=== PATIENT | male | born 1945 | race Caucasian/White ===

== ENCOUNTER → 2019-01-27 | Outpatient (CLI) | payer MEDICARE, SELFPAY | PROVIDERS: PCP Physician Assistant; Visit Provider Physician Assistant | DX: E78.5 Hyperlipidemia, unspecified (principal); R97.20 Elevated prostate specific antigen [PSA] | CPT/HCPCS: 36415; 80061; 84153; G0103 ==

== ENCOUNTER 2020-01-19 09:57 | Outpatient (CLI) | payer MEDICARE, SELFPAY ==
[2020-01-19 10:39] LABS: Hematocrit 39.7 % (42.0-52.0); Hemoglobin 14.1 g/dL (14.0-18.0); Immature Platelet Fraction Pct 3.9 % (0.9-11.2); Mean Corpuscular HGB Conc 35.5 g/dl (32-36); Mean Corpuscular Hemoglobin 30.3 pg (26-34); Mean Corpuscular Volume 85.4 fl (80-100); Mean Platelet Volume 10.3 fl (7.4-10.4); Platelet Count Result 118 k/mm3 (150-375); Red Blood Count 4.65 M/mm3 (4.6-6.20); Red Cell Distribution Width 12.7 % (11.5-14.5); White Blood Count 5.6 K/mm3 (4.5-10.0)
[2020-01-19 10:50] LABS: Alanine Aminotransferase 20 U/L (4-50); Alkaline Phosphatase 53 U/L (38-126); Anion Gap 6 mmol/L (8-16); Aspartate Amino Transferase 31 U/L (17-59); Bilirubin,Total 0.6 mg/dL (0.2-1.3); Blood Urea Nitrogen 22 mg/dL (9-20); Calcium 8.7 mg/dL (8.4-10.2); Carbon Dioxide 27 mmol/L (22-30); Chloride 105 mmol/L (98-107); Cholesterol 181 mg/dL (0-200); Estimated Glomerular Filt Rate > 60; Glucose 90 mg/dL (75-110); HDL Direct 60 mg/dL; Potassium 4.1 mmol/L (3.4-5.0); Sodium 138 mmol/L (137-145); Triglycerides 52 mg/dL (<150)
[2020-01-19 11:01] LABS: LDL Cholesterol Direct 102 mg/dL
[2020-01-19 11:21] LABS: Prostate Specific Antigen 3.8 ng/mL (< OR = 4.0)
== END 2020-01-19 09:58 | disposition home or self-care (01) ==
PROVIDERS: PCP Physician Assistant; Visit Provider Physician Assistant
DX: E78.5 Hyperlipidemia, unspecified (principal); R53.83 Other fatigue; Z12.5 Encounter for screening for malignant neoplasm of prostate
CPT/HCPCS: 36415; 80053; 80061; 84153; 84443; 85027; 85055; G0103

== ENCOUNTER 2020-07-27 08:17 | Outpatient (CLI) | payer MEDICARE, SELFPAY | END 2020-07-27 08:18 | disposition home or self-care (01) | LOC: ANHCOVIDVC 08:17 | PROVIDERS: PCP Physician Assistant | DX: Z23 Encounter for immunization (principal) | CPT/HCPCS: 0001A; 91300 ==

== ENCOUNTER 2020-08-17 08:17 | Outpatient (CLI) | payer MEDICARE, SELFPAY | END 2020-08-17 08:18 | LOC: ANHCOVIDVC 08:17 | PROVIDERS: PCP Physician Assistant | DX: Z23 Encounter for immunization (principal) | CPT/HCPCS: 0002A; 91300 ==

== ENCOUNTER 2020-12-31 19:29 | Emergency (ER) | payer MEDICARE, SELFPAY ==
--- NOTE | ~2020-12-31 | CT_ITS ---
EXAMINATION: CT abdomen pelvis wo con DATE: 12/31/2020 21:26 INDICATION: Sudden onset left lower quadrant abdominal pain. TECHNIQUE: Computed tomography (CT) of the abdomen and pelvis was performed without intravenous contr ast. Automated exposure control and iterative reconstruction technique were employed. The dose-length product was 606.26 mGy-cm. COMPARISON: None FINDINGS: Calcified left lower lobe nodule consistent with old granulomatous disease. Heart size is normal. No pericardial or pleural effusion. Small sliding-type hiatal hernia. Focal hepatic steatosis at the lig amentum teres. Approximately 1.5-2 cm indeterminate hypodense lesion in the right hepatic lobe. Gallb ladder, spleen, pancreas and bilateral adrenal glands are normal. 4 mm nonobstructing stone at a lowe r pole calyx of the right kidney. 6 x 4 x 2 mm obstructing stone at the distalmost left ureter within 5 mm of the ureterovesicular junction resulting in moderate left hydroureteronephrosis. No other lef t-sided urolithiasis. There is stranding about the left kidney and renal sinus. Bladder is partially decompressed. Surgical clips versus brachytherapy seeds at the enlarged prostate. Small fat-containin g left inguinal hernia and large right inguinal hernia containing short segment of nonobstructed smal l bowel. Normal appendix. Moderate sigmoid and distal descending colon diverticulosis without adjacen t inflammatory change to suggest diverticulitis. No free intraperitoneal gas or fluid. No pathologica lly enlarged abdominal or pelvic lymphadenopathy. Moderate to severe thoracolumbar spondylosis. Mild to moderate bilateral hip osteoarthritis. IMPRESSION: 1. Lateral nephrolithiasis with obstructing 6 x 4 x 2 mm stone at the distalmost left ureter with mod erate left hydronephrosis. Correlate with urinalysis to exclude associated urinary tract infection. 2. Small sliding-type hiatal hernia. 3. Indeterminate and ill-defined 1.5-2 cm hypodense lesion in the right hepatic lobe statistically mo st likely to represent a hemangioma but would recommend follow-up and postcontrast MRI or CT for furt her evaluation. 4. Small fat-containing left inguinal hernia and large right inguinal hernia containing short segment of nonobstructed small bowel. 5. Surgical clips versus brachytherapy seeds at the enlarged prostate. Reviewed, dictated and finalized at location A. IMPRESSION: 1. Lateral nephrolithiasis with obstructing 6 x 4 x 2 mm stone at the distalmos t left ureter with moderate left hydronephrosis. Correlate with urinalysis to e xclude associated urinary tract infection. 2. Small sliding-type hiatal hernia. 3. Indeterminate and ill-defined 1.5-2 cm hypodense lesion in the right hepatic lobe statistically most likely to represent a hemangioma but would recommend f ollow-up and postcontrast MRI or CT for further evaluation. 4. Small fat-containing left inguinal hernia and large right inguinal hernia co ntaining short segment of nonobstructed small bowel. 5. Surgical clips versus brachytherapy seeds at the enlarged prostate.
--- NOTE | ~2020-12-31 | XR_ITS ---
EXAMINATION: XR abdomen/kub 1V INDICATION: Left ureteral stone TECHNIQUE: Supine view of the abdomen is obtained. COMPARISON: CT of the same day FINDINGS: A 6 mm stone projects in the left pelvis at the expected location of the distal left ureter . There is a 4 mm stone of the right kidney. The bowel gas pattern is normal. Brachytherapy seeds are noted. There is mild to moderate hip osteoarthritis. IMPRESSION: 1. 6 mm stone at the expected location distal left ureter. 2. Right nephrolithiasis. Reviewed, dictated and finalized at location A.
[2020-12-31 19:38] VITALS: BP 125/65; PULSE 57; RESP 20; TEMP 36.1; O2SAT 100
[2020-12-31 20:03] LABS: Basophils Percent Auto 0.4 % (0.2-1.2); Eosinophils Absolute Auto 0.2 K/mm3 (0-0.3); Hematocrit 41.7 % (42.0-52.0); Immature Granulocyte Absolute 0.02 K/mm3 (0.00-0.031); Immature Granulocyte Percent A 0.2 % (0-0.5); Lymphocytes Absolute Auto 1.58 K/mm3 (0.9-3.2); Lymphocytes Percent Auto 18.9 % (18.3-44.2); Mean Corpuscular HGB Conc 33.6 g/dl (32-36); Mean Corpuscular Hemoglobin 29.1 pg (26-34); Mean Corpuscular Volume 86.7 fl (80-100); Mean Platelet Volume 9.8 fl (7.4-10.4); Monocytes Absolute Auto 0.8 K/mm3 (0.1-0.6); Neutrophils Absolute Auto 5.8 K/mm3 (1.3-6.7); Neutrophils Percent Auto 69.5 % (45.5-73.1); Platelet Count Result 164 k/mm3 (150-375); Red Blood Count 4.81 M/mm3 (4.6-6.20); White Blood Count 8.4 K/mm3 (4.5-10.0)
[2020-12-31 20:12] LABS: Alanine Aminotransferase 21 U/L (4-50); Alkaline Phosphatase 60 U/L (38-126); Anion Gap 10 mmol/L (8-16); Aspartate Amino Transferase 28 U/L (17-59); Bilirubin,Total 0.4 mg/dL (0.2-1.3); Blood Urea Nitrogen 23 mg/dL (9-20); Calcium 9.3 mg/dL (8.4-10.2); Carbon Dioxide 22 mmol/L (22-30); Chloride 105 mmol/L (98-107); Estimated CRCL calculation 46 ml/min; Estimated Glomerular Filt Rate 54; Glucose 150 mg/dL (65-110); Lipase 142 U/L (23-300); Potassium 3.6 mmol/L (3.4-5.0); Sodium 137 mmol/L (137-145)
[2020-12-31 21:20] LABS: Add Urine Microscopic? YES; Appearance Urine Clear (Clear); Bilirubin Urine Negative (Negative); Blood Urine 3+ (Negative); Color Urine Yellow (Yellow); Glucose Urine UA Negative (Negative); Ketones Urine Negative (Negative); Leukocyte Esterase Ur Negative LEU/UL (Negative); Nitrate Urine Negative (Negative); Protein Urine 2+ mg/dL (Negative); RBC Urine 0-2 /hpf (0-2); Urobilinogen Urine Negative mg/dL (<2.0); WBC Urine 0-3 /hpf
[2020-12-31 21:21] LABS: Specific Grav Ur 1.031 (1.001-1.035)
[2020-12-31 21:44] VITALS: BP 137/76; PULSE 73; RESP 18; O2SAT 98
[2020-12-31] MEDS: SODIUM CHLORIDE 0.9% IV 1,000 ML 999 ML IV CONT (21:44)
[2020-12-31 22:44] VITALS: BP 144/67; PULSE 89; RESP 18; O2SAT 97
--- NOTE | 2020-12-31 22:54 | ED.ABDPAIN ---
HPI - Abdominal Pain General Chief Complaint: Abdominal Pain Stated Complaint: Left groin pain Time Seen by Provider: 12/31/20 21:05 History of Present Illness HPI narrative: Patient presents with left-sided abdominal pain. Patient ports he is cooking dinner and sudden onset of sharp pain in his left groin. Reports that caused him to be nauseous and have diaphoresis. He never experienced pain like this before. There are no clear aggravating or alleviating factors. He came to the ER for evaluation. On arrival to ER reports his pain had greatly improved though still present but nearly resolved. Related Data Home Medications Medication Instructions Recorded Confirmed finasteride 5 mg tablet 5 mg PO DAILY 01/21/20 01/27/20 rosuvastatin 10 mg tablet 10 mg PO DAILY 01/21/20 01/27/20 Allergies Allergy/AdvReac Type Severity Reaction Status Date / Time No Known Allergies Allergy Verified 12/31/20 19:43 Review of Systems Review of Systems: CONSTITUTIONAL: Denies fever, chills, or sweats. EYES: Denies visual changes, redness, or discharge. ENT: Denies rhinorrhea, congestion, sore throat, or otalgia. CARDIOVASCULAR: Denies chest pain, palpitations, or edema. RESPIRATORY: Denies cough or dyspnea. GASTROINTESTINAL: Denies vomiting, or diarrhea. GENITOURINARY: Denies dysuria or hematuria. SKIN: Denies rash or itching. MUSCULOSKELETAL: Denies back pain, joint pain, or myalgia. NEUROLOGIC: Denies headache, numbness, dizziness, or weakness. PSYCHIATRIC: Denies anxiety or depression. [facility] Family History Family History Mother Family history of malignant neoplasm Father Family history of malignant neoplasm Social History Social History Years smoked: 2 Smoking status: Former smoker Second hand tobacco smoke exposure: No Smoking end date: 05/20/69 Alcohol intake: current Exam Narrative: GENERAL: Well-appearing, well-nourished, and in no acute distress. HEAD: Normocephalic, atraumatic. EYES: PERRLA and EOMI. ENT: Nares clear, no rhinorrhea or epistaxis. Mucous membranes moist. NECK: Supple. No masses. No JVD ABDOMEN: Soft, nontender, nondistended, normal active bowel sounds. BACK: No tenderness palpation no CVA tenderness EXTREMITIES: Normal range of motion. No edema. SKIN: Warm, dry, no rash. NEURO: No focal deficits. Alert and oriented x3. PSYCH: Normal mood and affect. Course Reevaluation(s) Reevaluation #1: Patient continues feels much improved from his initial symptom onset. Work-up and plan reviewed with patient. Patient feels he can manage his pain at home with follow-up with his urologist next week Date: 12/31/20 Time: 22:45 Vital Signs Vital signs: Vital Signs Temperature 36.1 C L 12/31/20 19:38 Pulse Rate 57 L 12/31/20 19:38 Respiratory Rate 20 12/31/20 19:38 Blood Pressure 125/65 12/31/20 19:38 Pulse Oximetry 100 12/31/20 19:38 Temperature 36.1 C L 12/31/20 19:38 Pulse Rate 89 12/31/20 22:44 Respiratory Rate 18 12/31/20 22:44 Blood Pressure 144/67 H 12/31/20 22:44 Pulse Oximetry 97 12/31/20 22:44 MDM - Abdominal Pain MDM Narrative Medical decision making narrative: H&P as above, vss, pt looks clinically well, I am unable to reproduce pain during the exam, labs unremarkable, img with a 6 mm ureteral stone, additional labs/img considered, symptomatic relief available as needed, on reevaluation pt continues to looks clinically well. Suspect ureteral stone, dns CHRISTIANO, infected stone, severe sepsis. Case discussed with Dr. Johnson who will follow up with patient next week. Plan to tx/monitor as op w/ urology f/u findings/plan discussed with pt, pt agree/comfortable with plan, return precautions given Lab Data Result diagrams: 12/31/20 19:55 12/31/20 19:55 Labs: Lab Results 12/31/20 12/31/20 12/31/20 Range/Units 19:5
== END 2020-12-31 23:28 | disposition home or self-care (01) ==
PROVIDERS: Emergency Medicine; Emergency Provider Emergency Medicine; PCP Physician Assistant
DX: N13.2 Hydronephrosis with renal and ureteral calculous obstruction (principal); Z87.891 Personal history of nicotine dependence; K44.9 Diaphragmatic hernia without obstruction or gangrene; K76.9 Liver disease, unspecified; K40.20 Bilateral inguinal hernia, without obstruction or gangrene, not specified as recurrent
CPT/HCPCS: 36415; 74018; 74176; 80053; 81001; 83690; 85025; 96360; 99284; J7030

== ENCOUNTER 2021-01-04 11:32 | Outpatient (CLI) | payer MEDICARE, SELFPAY ==
--- NOTE | ~2021-01-04 | XR_ITS ---
XR abdomen/kub 1V DATE: 01/04/2021 11:50 INDICATION: Left ureteral stone TECHNIQUE: AP projection, 2 views COMPARISON: 12/31/[address] abdomen pelvis FINDINGS: The calcified calculus overlying the distal left ureter on 12/31/2020 KUB is not definitivel y localized on the current radiograph, and may have been passed. No bowel obstruction is evident. The psoas shadows are intact. No visceromegaly is detected. Brachytherapy seeds and calcification overlie the prostate. Degenerative changes of the thoracic and lumbar spine. The lung bases are clear. Heart size appears normal. IMPRESSION: Previously reported 6 mm distal left ureteral calcified calculus is not localized at the distal left ureter on the current examination Reviewed, dictated and finalized at Location [facility]. Reviewed, dictated and finalized at location A.
== END 2021-01-04 11:33 | disposition home or self-care (01) ==
LOC: ANHIMG 11:35
PROVIDERS: PCP Physician Assistant; Visit Provider Urology
DX: N20.1 Calculus of ureter (principal)
CPT/HCPCS: 74018

== ENCOUNTER 2021-02-01 10:40 | Emergency (ER) | payer MEDICARE, SELFPAY ==
[2021-02-01 10:46] VITALS: BP 149/62; PULSE 66; RESP 14; TEMP 36.5; O2SAT 100
[2021-02-01 11:18] LABS: Basophils Percent Auto 0.4 % (0.2-1.2); Eosinophils Absolute Auto 0.1 K/mm3 (0-0.3); Eosinophils Percent Auto 1.9 % (0-4.4); Hematocrit 41.6 % (42.0-52.0); Hemoglobin 14.1 g/dL (14.0-18.0); Immature Granulocyte Absolute 0.02 K/mm3 (0.00-0.031); Immature Granulocyte Percent A 0.4 % (0-0.5); Lymphocytes Percent Auto 16.8 % (18.3-44.2); Mean Corpuscular HGB Conc 33.9 g/dl (32-36); Mean Corpuscular Hemoglobin 29.7 pg (26-34); Mean Corpuscular Volume 87.8 fl (80-100); Mean Platelet Volume 9.9 fl (7.4-10.4); Monocytes Absolute Auto 0.5 K/mm3 (0.1-0.6); Monocytes Percent Auto 9.5 % (2.6-8.5); Neutrophils Absolute Auto 3.8 K/mm3 (1.3-6.7); Platelet Count Result 144 k/mm3 (150-375); Red Blood Count 4.74 M/mm3 (4.6-6.20); Red Cell Distribution Width 12.7 % (11.5-14.5); White Blood Count 5.4 K/mm3 (4.5-10.0)
--- NOTE | 2021-02-01 11:27 | ED.GENADULT ---
HPI - General Adult General Chief complaint: Psychiatric Symptoms Stated complaint: SI Time Seen by Provider: 02/01/21 11:20 History of Present Illness HPI narrative: Patient 75-year-old gentleman who presents the emergency department with chief complaint of depression and needs mental health evaluation. The patient states that since early December he has been very depressed as he suddenly found out that his left him and has found that there is been some significant financial challenges and has been reporting that he has been feeling very depressed. The patient states that he feels somewhat hopeless states that he has had some thoughts of harming himself but does not have an actual plan. The patient states that has not tried to harm himself before in the past but feels very hopeless at this time. The patient states that he does not want away start time and feels that this today is more of a misunderstanding Related Data Home Medications Medication Instructions Recorded Confirmed No Home Medications 02/01/21 02/01/21 Allergies Allergy/AdvReac Type Severity Reaction Status Date / Time No Known Allergies Allergy Verified 02/01/21 12:50 Review of Systems Review of Systems: A 10 system review of systems was completed on the patient and is negative except for what is stated in the HPI. Nursing and ancillary documentation was reviewed. [facility] Family History Family History Mother Family history of malignant neoplasm Father Family history of malignant neoplasm Social History Social History Years smoked: 2 Smoking status: Former smoker Second hand tobacco smoke exposure: No Smoking end date: 05/20/69 Alcohol intake: current Substance use type: does not use Course Course Emergency Course: Patient is medically cleared for psychiatric evaluation Vital Signs Vital signs: Vital Signs Temperature 36.5 C 02/01/21 10:46 Pulse Rate 66 02/01/21 10:46 Respiratory Rate 14 02/01/21 10:46 Blood Pressure 149/62 H 02/01/21 10:46 Pulse Oximetry 100 02/01/21 10:46 Temperature 36.8 C 02/01/21 12:53 Pulse Rate 66 02/01/21 12:53 Respiratory Rate 16 02/01/21 12:53 Blood Pressure 153/64 H 02/01/21 12:53 Pulse Oximetry 98 02/01/21 12:53 Medical Decision Making Vital Signs Vital Signs: Vital Signs Temperature 36.5 C 02/01/21 10:46 Pulse Rate 66 02/01/21 10:46 Respiratory Rate 14 02/01/21 10:46 Blood Pressure 149/62 H 02/01/21 10:46 Pulse Oximetry 100 02/01/21 10:46 Temperature 36.8 C 02/01/21 12:53 Pulse Rate 66 02/01/21 12:53 Respiratory Rate 16 02/01/21 12:53 Blood Pressure 153/64 H 02/01/21 12:53 Pulse Oximetry 98 02/01/21 12:53 Lab Data Result diagrams: 02/01/21 10:58 02/01/21 10:58 Labs: Lab Results 02/01/21 02/01/21 02/01/21 Range/Units 10:58 10:58 10:58 WBC 5.4 (4.5-10.0) K/mm3 RBC 4.74 (4.6-6.20) M/mm3 Hgb 14.1 (14.0-18.0) g/dL Hct 41.6 L (42.0-52.0) % MCV 87.8 (80-100) fl MCH 29.7 (26-34) pg MCHC 33.9 (32-36) g/dl RDW 12.7 (11.5-14.5) % Plt Count 144 L (150-375) k/mm3 MPV 9.9 (7.4-10.4) fl Immature Gran % (Auto) 0.4 (0-0.5) % Neut % (Auto) 71.0 (45.5-73.1) % Lymph % (Auto) 16.8 L (18.3-44.2) % Pender % (Auto) 9.5 H (2.6-8.5) % Eos % (Auto) 1.9 (0-4.4) % Baso % (Auto) 0.4 (0.2-1.2) % Lymph # (Auto) 0.90 (0.9-3.2) K/mm3 Pender # (Auto) 0.5 (0.1-0.6) K/mm3 Eos # (Auto) 0.1 (0-0.3) K/mm3 Baso # (Auto) 0.0 (0.0-0.1) K/mm3 Abs Immat Gran (auto) 0.02 (0.00-0.031) K/mm3 Absolute Neuts (auto) 3.8 (1.3-6.7) K/mm3 Absolute Nucleated RBC 0.0 (0.0-0.012) K/mm3 Nucleated RBC % 0.0 (0.0-0.2) % Sodium 140 (137-145) mmol/L Potassium 3.9 (3.4-5.0) mmol/L C
[2021-02-01 11:28] LABS: Add Urine Microscopic? YES; Appearance Urine Clear (Clear); Bilirubin Urine Negative (Negative); Blood Urine 1+ (Negative); Color Urine Yellow (Yellow); Glucose Urine UA Negative (Negative); Ketones Urine Trace mg/dL (Negative); Leukocyte Esterase Ur Negative LEU/UL (Negative); Mucus Urine Heavy /lpf; Nitrate Urine Negative (Negative); Protein Urine 1+ mg/dL (Negative); Specific Grav Ur 1.029 (1.001-1.035); Squamous Epithelial Cell Urine Rare /hpf (Few); Urobilinogen Urine Negative mg/dL (<2.0); WBC Urine 0-3 /hpf
--- NOTE | 2021-02-01 11:39 | ECG_ITS ---
Measurements Intervals [place] Rate: 60 P: 85 [place]: 212 QRS: -34 QRSD: 110 T: 50 QT: 403 QTc: 405 Interpretive Statements SINUS RHYTHM WITH FIRST DEGREE AV BLOCK LEFT AXIS DEVIATION INCOMPLETE RIGHT BUNDLE BRANCH BLOCK ABNORMAL ECG Electronically Signed On 02-01-2021 13:31:47 CDT by Jayesh Casas D.O.
[2021-02-01 11:43] LABS: Alanine Aminotransferase 17 U/L (4-50); Albumin Level 4.1 g/dL (3.5-5.1); Alkaline Phosphatase 58 U/L (38-126); Anion Gap 9 mmol/L (8-16); Aspartate Amino Transferase 28 U/L (17-59); Bilirubin,Total 0.6 mg/dL (0.2-1.3); Blood Urea Nitrogen 18 mg/dL (9-20); Carbon Dioxide 25 mmol/L (22-30); Chloride 106 mmol/L (98-107); Estimated CRCL calculation 59 ml/min; Estimated Glomerular Filt Rate > 60; Glucose 98 mg/dL (65-110); Potassium 3.9 mmol/L (3.4-5.0); Sodium 140 mmol/L (137-145)
[2021-02-01 11:43] LABS: Amphetamine Screen Urine Negative (Negative); Barbiturate Screen Urine Negative (Negative); Benzodiazepines Screen Urine Negative (Negative); Cannabinoid Screen Urine Negative (Negative); Cocaine Screen Urine Negative (Negative); Methadone Screen Urine Negative (Negative); Opiate Screen Urine Negative (Negative); Phencyclidine Screen Urine Negative (Negative)
[2021-02-01 12:06] LABS: Acetaminophen < 10 ug/mL (10-30); Salicylate < 1.0 mg/dL (2-20)
[2021-02-01 12:08] LABS: Ethanol < 10 mg/dL (<10)
[2021-02-01 12:53] VITALS: BP 153/64; PULSE 66; RESP 16; TEMP 36.8; O2SAT 98
--- NOTE | 2021-02-01 12:55 | PC.NURSE ---
Patient stating he has nothing to look forward to d/t his filing for divorce. Patient states he has been upset since his left.
--- NOTE | 2021-02-01 15:19 | PC.NURSE ---
Addendum entered by Agnieszka Hammond RN 02/01/21 15:19: pt has no suicide risk indicated per suicide risk assessment Original Note: sitter pulled. pt taken off suicide precautions d/t signing safety contract
== END 2021-02-01 17:29 | disposition home or self-care (01) ==
PROVIDERS: Emergency Medicine; Emergency Provider Emergency Medicine; PCP Physician Assistant
DX: F32.9 Major depressive disorder, single episode, unspecified (principal); Z87.891 Personal history of nicotine dependence; I44.0 Atrioventricular block, first degree; I45.10 Unspecified right bundle-branch block
CPT/HCPCS: 36415; 80053; 80307; 81001; 84443; 85025; 93005; 99283

== ENCOUNTER 2021-11-08 07:37 | Outpatient (CLI) | payer MEDICARE, SELFPAY ==
[2021-11-08 07:50] LABS: Basophils Percent Auto 0.5 % (0.2-1.2); Eosinophils Absolute Auto 0.2 K/mm3 (0-0.3); Eosinophils Percent Auto 3.7 % (0-4.4); Hematocrit 40.2 % (42.0-52.0); Hemoglobin 13.7 g/dL (14.0-18.0); Immature Granulocyte Absolute 0.01 K/mm3 (0.00-0.031); Immature Granulocyte Percent A 0.2 % (0-0.5); Immature Platelet Fraction Pct 2.8 % (0.9-11.2); Lymphocytes Absolute Auto 1.22 K/mm3 (0.9-3.2); Lymphocytes Percent Auto 20.5 % (18.3-44.2); Mean Corpuscular HGB Conc 34.1 g/dl (32-36); Mean Corpuscular Hemoglobin 29.7 pg (26-34); Mean Corpuscular Volume 87.2 fl (80-100); Mean Platelet Volume 9.6 fl (7.4-10.4); Monocytes Absolute Auto 0.5 K/mm3 (0.1-0.6); Monocytes Percent Auto 8.7 % (2.6-8.5); Neutrophils Percent Auto 66.4 % (45.5-73.1); Platelet Count Result 154 k/mm3 (150-375); Red Blood Count 4.61 M/mm3 (4.6-6.20); Red Cell Distribution Width 13.2 % (11.5-14.5)
[2021-11-08 09:02] LABS: Alanine Aminotransferase 19 U/L (6-50); Alkaline Phosphatase 60 U/L (38-126); Anion Gap 6 mmol/L (8-16); Aspartate Amino Transferase 28 U/L (17-59); Bilirubin,Total 0.6 mg/dL (0.2-1.3); Blood Urea Nitrogen 19 mg/dL (9-20); Calcium 8.7 mg/dL (8.4-10.2); Carbon Dioxide 27 mmol/L (22-30); Chloride 107 mmol/L (98-107); Cholesterol 242 mg/dL (0-200); Estimated Glomerular Filt Rate > 60; Glucose 98 mg/dL (65-110); HDL Direct 53 mg/dL; Potassium 3.8 mmol/L (3.4-5.0); Sodium 140 mmol/L (137-145); Triglycerides 71 mg/dL (<150)
[2021-11-08 09:16] LABS: LDL Cholesterol Direct 149 mg/dL
[2021-11-08 10:08] LABS: Folic Acid 11.1 ng/mL (2.76->20)
== END 2021-11-08 07:38 | disposition home or self-care (01) ==
PROVIDERS: PCP Physician Assistant; Visit Provider Physician Assistant
DX: R53.83 Other fatigue (principal); E78.5 Hyperlipidemia, unspecified
CPT/HCPCS: 36415; 80053; 80061; 82607; 82746; 84443; 85025; 85055

== ENCOUNTER 2021-12-13 07:39 | Emergency (ER) | payer MEDICARE, SELFPAY ==
[2021-12-13 07:41] VITALS: BP 198/82; PULSE 76; RESP 14; TEMP 37; O2SAT 100
[2021-12-13 08:05] LABS: Basophils Percent Auto 0.5 % (0.2-1.2); Eosinophils Absolute Auto 0.1 K/mm3 (0-0.3); Eosinophils Percent Auto 1.9 % (0-4.4); Hematocrit 41.6 % (42.0-52.0); Hemoglobin 14.4 g/dL (14.0-18.0); Immature Granulocyte Absolute 0.01 K/mm3 (0.00-0.031); Immature Granulocyte Percent A 0.2 % (0-0.5); Lymphocytes Absolute Auto 1.28 K/mm3 (0.9-3.2); Lymphocytes Percent Auto 20.2 % (18.3-44.2); Mean Corpuscular HGB Conc 34.6 g/dl (32-36); Mean Corpuscular Hemoglobin 29.8 pg (26-34); Mean Corpuscular Volume 86.1 fl (80-100); Mean Platelet Volume 9.6 fl (7.4-10.4); Monocytes Absolute Auto 0.5 K/mm3 (0.1-0.6); Monocytes Percent Auto 8.5 % (2.6-8.5); Neutrophils Absolute Auto 4.4 K/mm3 (1.3-6.7); Neutrophils Percent Auto 68.7 % (45.5-73.1); Platelet Count Result 153 k/mm3 (150-375); Red Blood Count 4.83 M/mm3 (4.6-6.20); Red Cell Distribution Width 13.1 % (11.5-14.5); White Blood Count 6.3 K/mm3 (4.5-10.0)
[2021-12-13 08:15] LABS: Alanine Aminotransferase 20 U/L (6-50); Albumin Level 4.4 g/dL (3.5-5.1); Alkaline Phosphatase 62 U/L (38-126); Anion Gap 10 mmol/L (8-16); Aspartate Amino Transferase 30 U/L (17-59); Bilirubin,Total 0.7 mg/dL (0.2-1.3); Blood Urea Nitrogen 18 mg/dL (9-20); Calcium 9.1 mg/dL (8.4-10.2); Carbon Dioxide 24 mmol/L (22-30); Chloride 105 mmol/L (98-107); Estimated Glomerular Filt Rate > 60; Glucose 105 mg/dL (65-110); Potassium 4.1 mmol/L (3.4-5.0); Sodium 139 mmol/L (137-145)
[2021-12-13 08:16] LABS: Appearance Urine Clear (Clear); Bilirubin Urine Negative (Negative); Color Urine Yellow (Yellow); Glucose Urine UA Negative (Negative); Ketones Urine Negative (Negative); Leukocyte Esterase Ur Negative LEU/UL (Negative); Nitrate Urine Negative (Negative); Protein Urine Negative (Negative); Specific Grav Ur 1.025 (1.001-1.035); Urobilinogen Urine 0.2 mg/dL (<2.0)
[2021-12-13 08:29] LABS: Mucus Urine Rare /lpf; RBC Urine 0-2 /hpf (0-2); WBC Urine 0-3 /hpf
[2021-12-13 08:38] LABS: Add Urine Microscopic? YES; Blood Urine Trace-Intact (Negative)
--- NOTE | 2021-12-13 08:55 | ED.MALEGU ---
HPI - Male Genitourinary General Chief complaint: Urogenital-Male Stated complaint: i think i have a kidney stone Time Seen by Provider: 12/13/21 07:48 History of Present Illness HPI Narrative: Pt presents with inability to void and some suprapubic tenderness this morning. Pt denies dysuria or fever or flank pain. Related Data Home Medications Medication Instructions Recorded Confirmed No Home Medications 02/01/21 11/08/21 Allergies Allergy/AdvReac Type Severity Reaction Status Date / Time No Known Allergies Allergy Verified 12/13/21 07:43 Review of Systems Review of Systems: All systems reviewed & are unremarkable except as noted in HPI and below PMFSH Family History Family History Mother Family history of malignant neoplasm Father Family history of malignant neoplasm Social History Social History Years smoked: 2 Smoking status: Former smoker Second hand tobacco smoke exposure: No Smoking end date: 05/20/69 Alcohol intake: current Substance use type: does not use Exam Const: General: healthy appearing and no acute distress Nutritional Appearance: well nourished Limitations: no limitations HENMT: Mouth: Yes Normal oral and palatal mucosa present Eyes: Conjunctivae: conjunctivae normal EOM: EOMs intact bilaterally Neck: Neck: normal visual inspection, no lymphadenopathy and no meningeal signs Resp: Effort & Inspection: normal respiratory effort Auscultation: clear to auscultation bilaterally Cardio: Rate: regular rate Rhythm: regular rhythm GI: GI Palp: Yes Soft to palpation Other: bladder feels distended with some suprapubic tenderness : General: Yes Bladder palpation abnormal and Yes no CVA tenderness Male General Exam: Yes normal external exam Penis: Yes normal penis Scrotum: scrotum normal Testes: Testes normal Urinary Catheter: Urinary Catheter: patent and draining and urine clear Back/Spine/Pelvis: Back: no CVA tenderness Skin: General skin exam: normal color Rashes: no rashes Wounds: no wounds Neuro: General: patient oriented x3 and no focal motor deficits Speech: normal speech Extrem: General: normal to inspection and no clubbing, cyanosis or edema Psych: Mental Status: mental status grossly normal Affect: normal affect Attitude: cooperative Course Vital Signs Vital signs: Vital Signs Temperature 98.6 F 12/13/21 07:41 Pulse Rate 76 12/13/21 07:41 Respiratory Rate 14 12/13/21 07:41 Blood Pressure 198/82 H 12/13/21 07:41 Pulse Oximetry 100 12/13/21 07:41 Oxygen Delivery Room Air 12/13/21 07:41 Temperature 98.6 F 12/13/21 07:41 Pulse Rate 76 12/13/21 07:41 Respiratory Rate 14 12/13/21 07:41 Blood Pressure 198/82 H 12/13/21 07:41 Pulse Oximetry 100 12/13/21 07:41 Oxygen Delivery Room Air 12/13/21 07:41 MDM - Male Genitourinary Lab Data Result diagrams: 12/13/21 07:57 12/13/21 07:57 Labs: Lab Results 12/13/21 12/13/21 12/13/21 Range/Units 07:57 07:57 08:04 WBC 6.3 (4.5-10.0) K/mm3 RBC 4.83 (4.6-6.20) M/mm3 Hgb 14.4 (14.0-18.0) g/dL Hct 41.6 L (42.0-52.0) % MCV 86.1 (80-100) fl MCH 29.8 (26-34) pg MCHC 34.6 (32-36) g/dl RDW 13.1 (11.5-14.5) % Plt Count 153 (150-375) k/mm3 MPV 9.6 (7.4-10.4) fl Immature Gran % (Auto) 0.2 (0-0.5) % Neut % (Auto) 68.7 (45.5-73.1) % Lymph % (Auto) 20.2 (18.3-44.2) % [place] % (Auto) 8.5 (2.6-8.5) % Eos % (Auto) 1.9 (0-4.4) % Baso % (Auto) 0.5 (0.2-1.2) % Lymph # (Auto) 1.28 (0.9-3.2) K/mm3 [place] # (Auto) 0.5 (0.1-0.6) K/mm3 Eos # (Auto) 0.1 (0-0.3) K/mm3 Baso # (Auto) 0.0 (0.0-0.1) K/mm3 Abs Immat Gran (auto) 0.01 (0.00-0.031) K/mm3 Absolute Neuts (auto) 4.4 (1.3-6.7) K/mm3 Absolute Nucleated RBC 0.0 (0.0-0
[2021-12-13 09:02] VITALS: BP 158/80; PULSE 72; RESP 18; O2SAT 99
[2021-12-13 09:22] VITALS: BP 158/80; PULSE 59; RESP 18; O2SAT 100
== END 2021-12-13 09:24 | disposition home or self-care (01) ==
LOC: ANHED 09:02
PROVIDERS: Emergency Provider Emergency Medicine; PCP Physician Assistant
DX: N40.1 Benign prostatic hyperplasia with lower urinary tract symptoms (principal); R33.8 Other retention of urine; Z87.891 Personal history of nicotine dependence
CPT/HCPCS: 36415; 51702; 80053; 81001; 85025; 99283

== ENCOUNTER 2021-12-15 12:09 | Emergency (ER) | payer MEDICARE, SELFPAY ==
[2021-12-15 12:11] VITALS: BP 145/66; PULSE 84; RESP 20; TEMP 36.4; O2SAT 97
--- NOTE | 2021-12-15 14:24 | ED.MALEGU ---
HPI - Male Genitourinary General Chief complaint: Urogenital-Male Stated complaint: leaking around F/C that was placed here 2 days ago Time Seen by Provider: 12/15/21 13:50 History of Present Illness HPI Narrative: Patient is a 76-year-old male who presents ER with leaking urine from around his Brar catheter. He had a Brar catheter placed for urinary outlet obstruction related to BPH. He is post to have it in over a week. He has no fevers chills or sweats. He has been changing his bag and having no issues. This morning he felt the urge to urinate while his bag was empty and he tried to pee then the next thing he knew his pants were filled with urine. There is no blood. He still has a small amount of urine within his Brar bag on his leg. Came here to make sure there is no additional issues before he goes out of town. Related Data Home Medications Medication Instructions Recorded Confirmed No Home Medications 02/01/21 11/08/21 Allergies Allergy/AdvReac Type Severity Reaction Status Date / Time No Known Allergies Allergy Verified 12/15/21 13:20 Review of Systems Constitutional: Constitutional: Denies chills and Denies fever(s) Gastrointestinal: Gastrointestinal: Denies abdominal pain, Denies nausea and Denies vomiting Genitourinary: Genitourinary: Denies hematuria, Denies dysuria and Denies testicular pain PMFSH Past Medical History Medical History (Updated 12/15/21 @ 15:13 by Piyush Wyatt MD) BPH (benign prostatic hyperplasia) Erectile dysfunction Essential hypertension Hyperlipidemia Ureteral stone Surgical History Surgical History (Updated 12/15/21 @ 14:27 by Piyush Wyatt MD) Presence of artificial knee joint, bilateral Family History Family History Mother Family history of malignant neoplasm Father Family history of malignant neoplasm Social History Social History Years smoked: 2 Smoking status: Former smoker Second hand tobacco smoke exposure: No Smoking end date: 05/20/69 Alcohol intake: current Substance use type: does not use Exam Narrative: GENERAL: Well-appearing, well-nourished, and in no acute distress. HEAD: Normocephalic, atraumatic. CHEST: Clear to auscultation. No respiratory distress. HEART: Regular rate and rhythm. Normal peripheral pulses. ABDOMEN: Soft, nontender, nondistended. : Normal-appearing penis with Brar catheter present coming out of the urethra. No drainage/bleeding. Normal scrotum. NEURO:Alert and oriented x3. PSYCH: Normal mood and affect. Course Course Emergency Course: Brar exchanged. Urine has been drained. Discharge Vital Signs Vital signs: Vital Signs Temperature 97.6 F 12/15/21 12:11 Pulse Rate 84 12/15/21 12:11 Respiratory Rate 20 12/15/21 12:11 Blood Pressure 145/66 H 12/15/21 12:11 Pulse Oximetry 97 12/15/21 12:11 Oxygen Delivery Room Air 12/15/21 12:11 Temperature 97.6 F 12/15/21 12:11 Pulse Rate 84 12/15/21 12:11 Respiratory Rate 20 12/15/21 12:11 Blood Pressure 145/66 H 12/15/21 12:11 Pulse Oximetry 97 12/15/21 12:11 Oxygen Delivery Room Air 12/15/21 12:11 Discharge Plan Discharge Clinical Impression: Brar catheter problem Patient Disposition: Home, Self-Care Condition: Stable Instructions: Brar Catheter Placement and Care (ED) Additional Instructions: Return to the ER if you have fever over 100.4 ?F, you cannot keep down food or water, you have chest pain or shortness of breath, or you have additional concerns. Prescriptions: No Action No Home Medications Follow-up/Referrals: Chito Washington PA-C [Primary Care Provider] - 1 Week
--- NOTE | 2021-12-15 14:34 | PC.NURSE ---
unable to irrigate pt's kwon. informed Dr Wyatt - jeovanny order received
[2021-12-15 15:46] VITALS: BP 138/78; PULSE 88; RESP 16
--- NOTE | 2021-12-15 15:48 | PC.NURSE ---
urinary catheter is draining urine now
== END 2021-12-15 15:48 | disposition home or self-care (01) ==
PROVIDERS: Emergency Provider Emergency Medicine; PCP Physician Assistant
DX: T83.031A Leakage of indwelling urethral catheter, initial encounter (principal); N40.0 Benign prostatic hyperplasia without lower urinary tract symptoms; I10 Essential (primary) hypertension; E78.5 Hyperlipidemia, unspecified; Z87.442 Personal history of urinary calculi; Z96.653 Presence of artificial knee joint, bilateral; Z87.891 Personal history of nicotine dependence; Y84.6 Urinary catheterization as the cause of abnormal reaction of the patient, or of later complication, without mention of misadventure at the time of the procedure
CPT/HCPCS: 51702; 99283; A4565

== ENCOUNTER 2022-02-07 10:17 | Outpatient (CLI) | payer MEDICARE, SELFPAY ==
--- NOTE | 2022-02-07 10:34 | ECG_ITS ---
Measurements Intervals [place] Rate: 68 P: 56 [place]: 204 QRS: -40 QRSD: 113 T: 67 QT: 370 QTc: 394 Interpretive Statements SINUS RHYTHM LEFT AXIS DEVIATION BORDERLINE AV CONDUCTION DELAY INCOMPLETE RIGHT BUNDLE BRANCH BLOCK BASELINE ARTIFACT- I, II, III, AVR BORDERLINE ECG COMPARED TO ECG 02/01/2021 13:03:37 NO SIGNIFICANT CHANGES Electronically Signed On 02-07-2022 12:03:51 CDT by Jayesh Casas D.O.
[2022-02-07 12:10] LABS: Basophils Percent Auto 0.5 % (0.2-1.2); Eosinophils Absolute Auto 0.2 K/mm3 (0-0.3); Eosinophils Percent Auto 2.7 % (0-4.4); Hematocrit 37.4 % (42.0-52.0); Hemoglobin 12.5 g/dL (14.0-18.0); Immature Granulocyte Absolute 0.01 K/mm3 (0.00-0.031); Immature Granulocyte Percent A 0.2 % (0-0.5); Lymphocytes Absolute Auto 1.25 K/mm3 (0.9-3.2); Lymphocytes Percent Auto 21.3 % (18.3-44.2); Mean Corpuscular HGB Conc 33.4 g/dl (32-36); Mean Corpuscular Hemoglobin 29.3 pg (26-34); Mean Corpuscular Volume 87.6 fl (80-100); Mean Platelet Volume 10.1 fl (7.4-10.4); Monocytes Absolute Auto 0.6 K/mm3 (0.1-0.6); Monocytes Percent Auto 9.5 % (2.6-8.5); Neutrophils Absolute Auto 3.9 K/mm3 (1.3-6.7); Neutrophils Percent Auto 65.8 % (45.5-73.1); Platelet Count Result 146 k/mm3 (150-375); Red Blood Count 4.27 M/mm3 (4.6-6.20); Red Cell Distribution Width 13.2 % (11.5-14.5); White Blood Count 5.9 K/mm3 (4.5-10.0)
[2022-02-07 12:22] LABS: Alanine Aminotransferase 18 U/L (6-50); Alkaline Phosphatase 55 U/L (38-126); Anion Gap 13 mmol/L (8-16); Aspartate Amino Transferase 24 U/L (17-59); Bilirubin,Total 0.4 mg/dL (0.2-1.3); Blood Urea Nitrogen 17 mg/dL (9-20); Calcium 8.7 mg/dL (8.4-10.2); Carbon Dioxide 28 mmol/L (22-30); Chloride 102 mmol/L (98-107); Estimated Glomerular Filt Rate 59; Glucose 106 mg/dL (65-110); Potassium 3.6 mmol/L (3.4-5.0); Sodium 143 mmol/L (137-145)
== END 2022-02-07 10:18 | disposition home or self-care (01) ==
PROVIDERS: PCP Physician Assistant; Visit Provider Surgery
DX: K40.20 Bilateral inguinal hernia, without obstruction or gangrene, not specified as recurrent (principal); I45.9 Conduction disorder, unspecified; I45.10 Unspecified right bundle-branch block
CPT/HCPCS: 36415; 80053; 85025; 86850; 86900; 86901; 93005

== ENCOUNTER 2022-02-12 01:39 | Day surgery (SDC) | payer MEDICARE, SELFPAY ==
[2022-02-06 14:33] VITALS: BMI 28.0
--- NOTE | 2022-02-06 14:42 | PC.NURSE ---
Report to the Outpatient Waiting Room, entrance under the green pavilion located off [facility], at time _1100_ on date _[id number]_. OR Time: _1pm_. Time changes happen often and if your time is changed the preop area will call you the afternoon before. - You and your visitor will be asked to self-screen and do not enter if you have any COVID symptoms. - Only one visitor and NO children visitors are allowed at this time. - The patient visitor is requested to leave or wait in car when not with patient due to restrictions. - A mask is required within the hospital. Patients may have clear liquids (water, carbonated beverages, clear teas, apple juice) until 3 hours prior to surgery with a maximum of 20 ounces. - No food from midnight until time of surgery Take the following medications with a SIP of water the morning of surgery: ___None Medications to discontinue per physician _Vitamin B Date to take last avai___[id number] Please no make-up, nail divehi, hairspray, perfume, deodorant, or body powder the day of surgery. No jewelry (including any body piercings) or valuables the day of surgery, leave them at home. Please take a shower or bath the morning of, surgery with Hebiclense, an antibacterial soap. Wear comfortable, loose fitting clothing. - Jewelry must be removed prior to entering the operating room. Rings and piercings that are not removed may be cut off. - The hospital will not accept responsibility for valuables. - Please leave all valuables, including medications, at home the day of surgery. If you are going home after surgery, a licensed furniture mover driver must drive you home. - NO public transportation without another adult. - We recommend that an adult stay with you for 24 hours following discharge. - We also recommend that you do not drive, make important decision, drink alcoholic beverages, or take any drugs that were not prescribed by your health care provider for at least 24 hours after your discharge time. Follow any additional instructions given to you from your surgeon. If you or anyone in your household have experienced Covid symptoms in the past week, please notify your surgeon or the nurse liaison at the phone number below for possible testing. Telephone instructions given to _Patient___and asked if any additional questions and then verbalized understanding. Patient advised to call surgeon office or pre surgery nurse liaison [phone] if any additional questions.
[2022-02-12] VITALS (8 sets, daily range): BP systolic 115–162; BP diastolic 56–73; PULSE 64–74; RESP 12–18; TEMP 36.6–36.8; O2SAT 97–100
[2022-02-12] MEDS: LACTATED RINGERS 1,000 ML 30 ML IV CONT ×2 (11:45→16:35)
[2022-02-12] MEDS: KETOROLAC 15 MG/ML VIAL (*BKC) IV PUSH (11:46)
[2022-02-12] MEDS: ACETAMINOPHEN 500 MG TABLET 1000 MG PO (11:46)
--- NOTE | 2022-02-12 12:37 | WPDANESEPPF ---
Anes - Initial Pre Proc Eval Procedure: Operation Date: 02/12/22 13:00 Proposed Procedures p Laparoscopic Bilateral Inguinal Hernia Repair with Mesh, Possible Open Right Inguinal Hernia Repair - Catalino Kothari MD Date/Time: 02/12/22 12:37 Surgeon: Catalino Kothari MD Pre Op Diagnosis: bilateral inguinal hernia Patient Data Age: 76 Gender: M Height: 1.78 m Weight: 87.7 kg Last Vital Signs Temp 36.8 C 02/12/22 11:10 Pulse 74 02/12/22 11:10 Resp 18 02/12/22 11:10 BP 162/73 H 02/12/22 11:10 Pulse Ox 99 02/12/22 11:10 O2 Del Method Room Air 02/12/22 11:10 Allergies Allergy/AdvReac Type Severity Reaction Status Date / Time No Known Allergies Allergy Verified 02/12/22 11:15 Home Medications Medication Instructions Recorded Confirmed Type tamsulosin 0.4 mg capsule 0.4 mg PO QHS 01/15/22 02/12/22 History vitamin B complex (B 1 tablet PO DAILY 01/17/22 02/12/22 History Complex-Vitamin B12 tablet) Patient hx anesthesia problems: none Family hx anesthesia problems: none Results Review: All pre-operative results and documents have been reviewed as part of the pre-operative evaluation. [facility] Past Medical History Medical History BPH (benign prostatic hyperplasia) Erectile dysfunction Essential hypertension Hyperlipidemia Ureteral stone Surgical History Surgical History History of prostate surgery Urolift, [address] Johnson Presence of artificial knee joint, bilateral Family History Family History Mother Family history of malignant neoplasm Father Family history of malignant neoplasm Social History Social History Years smoked: 2 Smoking status: Former smoker Tobacco type: cigarettes Second hand tobacco smoke exposure: No Smoking end date: 05/20/69 Alcohol intake: current Substance use type: does not use Living arrangements: alone Spiritual care concerns: No Anes - Eval Final PreProcedure Day of Procedure 02/12/22 12:37 Patient weight: overweight Heart: regular rate and rhythm Lungs: clear to auscultation Airway: Mallampati scale class II Neurological: alert and oriented Last oral intake: >/= 8 hours ASA classification: II Emergent: no Anesthetic plan: proceed Anesthesia type and monitoring: general ETT and standard monitoring Results Review: All pre-operative results and documents have been reviewed as part of the pre-operative evaluation. Informed Consent: The patient's anesthetic plan and its attendant risks and benefits were discussed with the patient/family/POA. Questions were solicited and answers provided to the satisfaction of the patient/family/POA.
--- NOTE | 2022-02-12 13:05 | WPDHPUPDATE1 ---
History and Physical Update Update Date/Time: 02/12/22 13:05 History and Physical has been reviewed, including an updated exam of the patient. There are NO changes in the patient's condition. I have had a thorough discussion with both the patient and Dr. Johnson regarding his situation with the prostate gland. At this time the patient understands that we are proceeding with a preperitoneal placement of mesh which will make it difficult to do any prostate surgery or prostatectomy.. However, Dr. Johnson states that with the patient's current age and the small site of suspicious findings on MRI that most likely they would recommend alternative treatments other than surgery to do a prostatectomy if this turns out to be prostate cancer. Patient has decided to proceed with the bilateral inguinal hernia repair now and seek further diagnosis and treatment of the possible prostate abnormality later. Risks, benefits, and alternatives have been discussed and questions answered. Patient agrees to proceed with procedure.
[2022-02-12] MEDS: ceFAZolin 2 GM/D5W 50 ML 2 GM/50 ML BAG IVPB (13:17)
[2022-02-12] MEDS: BUPIVACAINE/EPINEPHRINE 0.25% 50 ML VIAL 30 ML INFILTRATE (14:30)
--- NOTE | 2022-02-12 16:49 | W.PM.PROC2 ---
Procedure Note - Detailed Date of Procedure 02/12/22 Pre-op Diagnosis bilateral inguinal hernias Post-op Diagnosis Other (1. 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 Asymptomatic bulging on exam on the left Findings Right direct and indirect inguinal hernia with large lipoma of the cord. Left direct inguinal hernia. Description of Procedure After appropriate marking of the operative site prior to surgery, the patient was taken to the operating room. After induction of adequate general endotracheal anesthesia by [facility] staff, the patient was carefully prepped and draped in a sterile fashion. A timeout was performed confirming the procedure and site of surgery on the left and right. Following this, local anesthetic was infiltrated into the umbilical area and a vertical incision was made just below the umbilicus. I carefully dissected down to the the anterior rectus sheath on the right and then made a 1 cm vertical slit in the fascia just off the midline. The rectus muscle was retracted to right and then just in front of the posterior rectus sheath, a dissecting balloon was passed down onto the pubic bone. I used the oval dissecting balloon and this was insufflated with 40 pumps, while watching with the 0 degree laparoscope. It appeared that I was in the proper plane. Following this, the dissecting balloon was removed and replaced by a 130 mm Cobos cannula with a circular 30 cc conforming balloon. After getting this on into the space the balloon was inflated pulled back and the all of secured. CO2 gas was connected and at 8 mmHg pressure allowed to flow in and expand the preperitoneal space. Following this, the 0 degree laparoscope was used to carefully place two 5mm [employer] slim trocars, in the midline. One suprapubic and other one correction between the umbilicus and the pubic bone. Then starting on the right which was the more symptomatic side tedious dissection then occurred in the preperitoneal space exposing the Gonzalo's ligament, the cord structures, the muscular tissue anteriorly, and the retroperitoneum. It was found that there was a large direct inguinal hernia medial to the epigastric vessels. Filmy adhesions were attached to this once these were a taken down the defect became more apparent. I did not tack the pseudo sac on this side. We then carefully dissected the cord structures and found a very large lipoma of the cord which was retracted back into the abdomen along the cord structures in order to try to be sure that it did right back up into the indirect space. Because the lipoma was so large it were to be sure that I had pulled the right testicle up. Therefore I put on another fill of the drape was pulled back and I carefully palpated and confirmed that both testes were down in the scrotum at this point. I could pull on the right testis and see the cord structures move. We could tell that there was a large lipoma along the cord structures in that I could leave this preperitoneal and not pull the testes up. This large lipoma of the cord was then able to be dissected back and we could visualize the posterior peritoneum. I then dissected up to the level of the umbilicus and it was ready for mesh placement. After carefully confirming all sites and that the mesh would cover the direct, the indirect space, and lay on top of the cord structures well cephalad to the exit into the groin, I carefully rolled the Large right light 3D Bard mesh and slid this through the 12 mm trocar at the umbilical level down into the preperitoneal space. This unfurled nicely and sat nicely against the right groin structures. It nicely covered all spaces an
== END 2022-02-12 18:19 | disposition home or self-care (01) ==
PROVIDERS: PCP Physician Assistant; Visit Provider Surgery
PROC: (CPT 49650; principal; 2022-02-12 13:00)
DX: K40.20 Bilateral inguinal hernia, without obstruction or gangrene, not specified as recurrent (principal); D17.6 Benign lipomatous neoplasm of spermatic cord; I10 Essential (primary) hypertension; N40.0 Benign prostatic hyperplasia without lower urinary tract symptoms; Z87.891 Personal history of nicotine dependence
CPT/HCPCS: 49650; A9270; C1727; C1781; J0690; J1100; J1170; J1885; J2405; J2704; J2710; J3010; J7030; J7120

== ENCOUNTER 2022-03-15 09:02 | Day surgery (SDC) | payer MEDICARE, SELFPAY ==
[2022-03-02 10:29] VITALS: BMI 28.1
[2022-03-15 09:40] VITALS: BP 139/75; PULSE 79; RESP 20; TEMP 37; O2SAT 100
[2022-03-15 09:45] VITALS: BMI 27.3
--- NOTE | 2022-03-15 10:54 | P.PNAN_ITS ---
Anes - Initial Pre Proc Eval Procedure: Operation Date: 03/15/22 11:00 Proposed Procedures p Screening Colonoscopy - Catalino Kothari MD Date/Time: 03/15/22 10:54 Surgeon: Catalino Kothari MD Pre Op Diagnosis: Neoplasm Screening Patient Data Age: 76 Gender: M Height: 1.78 m Weight: 86.5 kg Allergies Allergy/AdvReac Type Severity Reaction Status Date / Time No Known Allergies Allergy Verified 03/15/22 09:42 Home Medications Medication Instructions Recorded Confirmed Type tamsulosin 0.4 mg capsule 0.4 mg PO QHS 01/15/22 03/15/22 History vitamin B complex (B 1 tablet PO DAILY 01/17/22 03/15/22 History Complex-Vitamin B12 tablet) Patient hx anesthesia problems: none Family hx anesthesia problems: none Results Review: All pre-operative results and documents have been reviewed as part of the pre- operative evaluation. [facility] Past Medical History Medical History BPH (benign prostatic hyperplasia) Erectile dysfunction Essential hypertension Hyperlipidemia Ureteral stone Surgical History Surgical History H/O bilateral inguinal hernia repair 02/12/22 Totally extraperitoneal laparoscopic bilateral inguinal hernia repair with mesh History of prostate surgery Urolift, [address] Johnson Presence of artificial knee joint, bilateral Family History Family History Mother Family history of malignant neoplasm Father Family history of malignant neoplasm Social History Social History Years smoked: 2 Smoking status: Never smoker Tobacco type: cigarettes Second hand tobacco smoke exposure: No Smoking end date: 05/20/69 Alcohol intake: never Substance use: never Substance use type: does not use Spiritual care concerns: No Anes - Eval Final PreProcedure Day of Procedure 03/15/22 10:54 Patient weight: overweight Heart: regular rate and rhythm Lungs: clear to auscultation Airway: Mallampati scale class II Neurological: alert and oriented Last oral intake: >/= 8 hours ASA classification: II Emergent: no Anesthetic plan: proceed Anesthesia type and monitoring: general GIVS and standard monitoring Results Review: All pre-operative results and documents have been reviewed as part of the pre- operative evaluation. Informed Consent: The patient's anesthetic plan and its attendant risks and benefits were discussed with the patient/family/POA. Questions were solicited and answers pro vided to the satisfaction of the patient/family/POA.
--- NOTE | 2022-03-15 10:57 | WPDHPUPDATE1 ---
History and Physical Update Update Date/Time: 03/15/22 10:57 History and Physical has been reviewed, including an updated exam of the patient. There are NO changes in the patient's condition since his last office visit.. Risks, benefits, and alternatives of a colonoscopy with possible biopsy, possible polypectomy have been discussed and questions answered. Patient agrees to proceed with procedure.
[2022-03-15] MEDS: LACTATED RINGERS 1,000 ML 150 ML IV CONT (11:13)
[2022-03-15 12:00] VITALS: BP 121/71; PULSE 61; RESP 16; O2SAT 100
[2022-03-15 12:10] VITALS: BP 124/67; PULSE 58; RESP 16; O2SAT 99
[2022-03-15 12:20] VITALS: BP 136/70; PULSE 59; RESP 16; O2SAT 98
--- NOTE | 2022-03-15 12:25 | SUR.PHASEII ---
PT AWAKE AND ALERT. DENIES PAIN. DRINKING WATER. STATES BROTHER WILL RETURN TO FACILITY AT 1230
--- NOTE | 2022-03-15 12:40 | WPDANESPN ---
Anes - Prog Note Post-Op Date/Time: 03/15/22 12:40 Cardiovascular status: normal Respiratory status: normal Airway patency: baseline Mental status: baseline Post-Op hydration status: normal Vital Signs: Last Vital Signs Temp 37.0 C 03/15/22 09:40 Pulse 59 L 03/15/22 12:20 Resp 16 03/15/22 12:20 BP 136/70 03/15/22 12:20 Pulse Ox 98 03/15/22 12:20 O2 Del Method Room Air 03/15/22 12:20 O2 Flow Rate 4 03/15/22 12:00 Pain Score (VAS): 0/10 I/O: Intake & Output 03/14/22 03/15/22 03/15/22 23:59 07:59 15:59 Intake Total 700 Balance 700 Patient Feedback: Patient satisfied with anesthetic care.
--- NOTE | 2022-03-15 12:49 | SUR.PHASEII ---
PT TEARFUL, ASKING TO SEE BROTHER, BROTHER BROUGHT TO PT ROOM
--- NOTE | 2022-03-15 13:03 | SUR.PHASEII ---
PT AWAKE AND ALERT. NO LONGER TEARFUL. STATES READY TO GO HOME.
== END 2022-03-15 13:02 | disposition home or self-care (01) ==
PROVIDERS: PCP Physician Assistant; Visit Provider Surgery
PROC: 0DJD8ZZ Inspection of Lower Intestinal Tract, Via Natural or Artificial Opening Endoscopic (ICD-10-PCS; CPT 45378; principal; 2022-03-15 11:00)
DX: Z12.11 Encounter for screening for malignant neoplasm of colon (principal)
CPT/HCPCS: 45380

== ENCOUNTER 2022-03-15 13:00 | Outpatient (NON) | payer MEDICARE, SELFPAY | END 2022-03-15 13:01 | disposition home or self-care (01) | PROVIDERS: PCP Physician Assistant; Visit Provider Surgery | DX: K40.20 Bilateral inguinal hernia, without obstruction or gangrene, not specified as recurrent (principal) | CPT/HCPCS: 88305 ==

== ENCOUNTER 2022-11-14 07:21 | Outpatient (CLI) | payer MEDICARE, SELFPAY ==
[2022-11-14 08:04] LABS: Basophils Percent Auto 0.4 % (0.2-1.2); Eosinophils Absolute Auto 0.2 K/mm3 (0-0.3); Eosinophils Percent Auto 3.4 % (0-4.4); Hematocrit 38.5 % (42.0-52.0); Hemoglobin 13.2 g/dL (14.0-18.0); Immature Granulocyte Absolute 0.01 K/mm3 (0.00-0.031); Immature Granulocyte Percent A 0.2 % (0-0.5); Immature Platelet Fraction Pct 2.7 % (0.9-11.2); Lymphocytes Percent Auto 22.9 % (18.3-44.2); Mean Corpuscular HGB Conc 34.3 g/dl (32-36); Mean Corpuscular Hemoglobin 29.7 pg (26-34); Mean Corpuscular Volume 86.7 fl (80-100); Mean Platelet Volume 9.4 fl (7.4-10.4); Monocytes Absolute Auto 0.5 K/mm3 (0.1-0.6); Monocytes Percent Auto 9.9 % (2.6-8.5); Neutrophils Absolute Auto 3.3 K/mm3 (1.3-6.7); Neutrophils Percent Auto 63.2 % (45.5-73.1); Platelet Count Result 151 k/mm3 (150-375); Red Blood Count 4.44 M/mm3 (4.6-6.20); Red Cell Distribution Width 12.5 % (11.5-14.5); White Blood Count 5.3 K/mm3 (4.5-10.0)
[2022-11-14 08:17] LABS: Alanine Aminotransferase 19 U/L (6-50); Alkaline Phosphatase 52 U/L (38-126); Anion Gap 4 mmol/L (8-16); Aspartate Amino Transferase 25 U/L (17-59); Bilirubin,Total 0.6 mg/dL (0.2-1.3); Blood Urea Nitrogen 24 mg/dL (9-20); Calcium 8.8 mg/dL (8.4-10.2); Carbon Dioxide 27 mmol/L (22-30); Chloride 107 mmol/L (98-107); Cholesterol 228 mg/dL (0-200); Estimated Glomerular Filt Rate > 60; Glucose 95 mg/dL (65-110); HDL Direct 51 mg/dL; Potassium 4.1 mmol/L (3.4-5.0); Sodium 138 mmol/L (137-145); Triglycerides 86 mg/dL (<150)
[2022-11-14 08:27] LABS: LDL Cholesterol Direct 145 mg/dL
[2022-11-14 09:22] LABS: Folic Acid 7.9 ng/mL (2.76->20)
== END 2022-11-14 07:22 | disposition home or self-care (01) ==
LOC: ANHLAB 07:24
PROVIDERS: PCP Physician Assistant; Visit Provider Physician Assistant
DX: R53.83 Other fatigue (principal); E78.5 Hyperlipidemia, unspecified
CPT/HCPCS: 36415; 80053; 80061; 82607; 82746; 84443; 85025; 85055

== ENCOUNTER 2023-11-14 09:35 | Outpatient (CLI) | payer MEDICARE, SELFPAY ==
[2023-11-14 10:27] LABS: Hematocrit 37.4 % (42.0-52.0); Hemoglobin 12.6 g/dL (14.0-18.0); Immature Platelet Fraction Pct 2.5 % (0.9-11.2); Mean Corpuscular HGB Conc 33.7 g/dl (32-36); Mean Corpuscular Hemoglobin 29.5 pg (26-34); Mean Corpuscular Volume 87.6 fl (80-100); Mean Platelet Volume 9.6 fl (7.4-10.4); Platelet Count Result 123 k/mm3 (150-375); Red Blood Count 4.27 M/mm3 (4.6-6.20); Red Cell Distribution Width 13.7 % (11.5-14.5); White Blood Count 5.4 K/mm3 (4.5-10.0)
[2023-11-14 10:38] LABS: Alanine Aminotransferase 18 U/L (6-50); Albumin Level 3.7 g/dL (3.5-5.1); Alkaline Phosphatase 57 U/L (38-126); Anion Gap 2 mmol/L (4-12); Aspartate Amino Transferase 23 U/L (17-59); Bilirubin,Total 0.5 mg/dL (0.2-1.3); Blood Urea Nitrogen 21 mg/dL (9-20); Calcium 8.8 mg/dL (8.4-10.2); Carbon Dioxide 29 mmol/L (22-30); Chloride 109 mmol/L (98-107); Cholesterol 189 mg/dL (0-200); Estimated Glomerular Filt Rate > 60; Glucose 109 mg/dL (65-110); HDL Direct 51 mg/dL; Potassium 4.1 mmol/L (3.4-5.0); Sodium 140 mmol/L (137-145); Triglycerides 87 mg/dL (<150)
[2023-11-14 10:49] LABS: LDL Cholesterol Direct 124 mg/dL
== END 2023-11-14 09:36 | disposition home or self-care (01) ==
LOC: ANHLAB 09:38
PROVIDERS: PCP Nurse Practitioner; Visit Provider Nurse Practitioner
DX: E78.5 Hyperlipidemia, unspecified (principal); I10 Essential (primary) hypertension; Z79.899 Other long term (current) drug therapy
CPT/HCPCS: 36415; 80053; 80061; 84443; 85027; 85055

== ENCOUNTER 2023-12-26 09:57 | Emergency (ER) | payer MEDICARE, SELFPAY ==
--- NOTE | ~2023-12-26 | XR_ITS ---
XR ankle RT 2V 12/26/2023 10:34 Indication: Right ankle pain after injury 2 days ago Procedure: 2 views right ankle Comparison: No prior studies for comparison. Findings: No acute fracture or traumatic malalignment. There are are degenerative calcaneal enthesoph ytes. Mild polyarticular osteoarthritis. No focal soft tissue abnormality. No foreign body. Talar dom e is unremarkable. Impression: 1: No acute fracture. Reviewed, dictated and finalized at location B. Impression: 1: No acute fracture.
[2023-12-26 10:02] VITALS: BP 156/62; PULSE 70; RESP 17; TEMP 36.6; O2SAT 99
--- NOTE | 2023-12-26 10:15 | ED.LOWEXIN ---
HPI - Extremity Injury (Lower) General Chief Complaint: Extremity Injury, Lower Stated Complaint: ankle injury Time Seen by Provider: 12/26/23 10:01 History of Present Illness HPI Narrative: 78-year-old male presents to the emergency room for right ankle pain. Patient states 3 days ago he was mowing the lawn, when he rolled his right ankle. Noted some mild swelling to the ankle. Pain with ambulation. States he wrapped his ankle after the injury and has not experienced any improvement of his symptoms. Related Data Home Medications Medication Instructions Recorded Confirmed tamsulosin 0.4 mg capsule 0.4 mg PO QHS 01/15/22 11/14/23 vitamin B complex (B 1 tablet PO DAILY 01/17/22 11/14/23 Complex-Vitamin B12 tablet) Allergies Allergy/AdvReac Type Severity Reaction Status Date / Time No Known Allergies Allergy Verified 12/26/23 10:00 Review of Systems Review of Systems: ROS unremarkable except for noted in HPI PMFSH Past Medical History Medical History BPH (benign prostatic hyperplasia) Erectile dysfunction Essential hypertension Hyperlipidemia Ureteral stone Surgical History Surgical History H/O bilateral inguinal hernia repair 02/12/22 Totally extraperitoneal laparoscopic bilateral inguinal hernia repair with mesh History of prostate surgery Urolift, [address] Johnson Presence of artificial knee joint, bilateral Family History Family History Mother Family history of malignant neoplasm Father Family history of malignant neoplasm Social History Social History Years smoked: 2 Smoking status: Never smoker Tobacco type: cigarettes Second hand tobacco smoke exposure: No Smoking end date: 05/20/69 Alcohol intake: never Substance use: never Substance use type: does not use Lack of Transportation: No Lack of Food: Never True Current Housing: I Have Housing Concerned About Future Housing: No Difficulty Paying Gas/Electric Bills: No Difficulty Paying for Meds: No Currently Unemployed: No Education: Trade/Vocational Certificate Difficulty w/ Childcare or Family Care: No Living arrangements: alone Spiritual care concerns: No Exam Narrative: GENERAL: Well-appearing, well-nourished, no physical limitations, and in no acute distress. HEAD: Normocephalic, atraumatic. EYES: Conjunctivae normal, PERRLA and EOMI. CHEST: Clear to auscultation. No respiratory distress. No wheezes rales or rhonchi. HEART: Regular rate and rhythm. No murmur heard. Normal peripheral pulses. EXTREMITIES: right ankle: mild TTP with minimal STS to lateral malleolus. no joint laxity. Full range of motion. No obvious bony abnormality. SKIN: Warm, dry, no rash. No noted wounds NEURO: No focal deficits. Alert and oriented x3. MAEW. CN's II-XI intact bilaterally, normal gait PSYCH: Cooperative. Normal mood and affect. Course Vital Signs Vital signs: Vital Signs Temperature 36.6 C 12/26/23 10:02 Pulse Rate 70 12/26/23 10:02 Respiratory Rate 17 12/26/23 10:02 Blood Pressure 156/62 H 12/26/23 10:02 Pulse Oximetry 99 12/26/23 10:02 Temperature 36.6 C 12/26/23 10:02 Pulse Rate 70 12/26/23 10:02 Respiratory Rate 17 12/26/23 10:02 Blood Pressure 156/62 H 12/26/23 10:02 Pulse Oximetry 99 12/26/23 10:02 MDM - Extremity Injury (Lower) MDM Narrative Medical decision making narrative: 78-year-old male presents emergency room for evaluation of right ankle pain. This patient was ambulatory on arrival. Plain films of his right ankle shows evidence of acute fracture. Number likely an ankle sprain. Will encourage Kd bandage with anti-inflammatories and orthopedic follow-up. Discharge Plan Discharge Clinical Impressi
== END 2023-12-26 10:50 | disposition home or self-care (01) ==
PROVIDERS: Emergency Provider Nurse Practitioner Family; PCP Nurse Practitioner
DX: S93.401A Sprain of unspecified ligament of right ankle, initial encounter (principal); I10 Essential (primary) hypertension; E78.5 Hyperlipidemia, unspecified; N40.0 Benign prostatic hyperplasia without lower urinary tract symptoms; Z87.442 Personal history of urinary calculi; Z87.891 Personal history of nicotine dependence; Y93.H2 Activity, gardening and landscaping; X50.9XXA Other and unspecified overexertion or strenuous movements or postures, initial encounter
CPT/HCPCS: 73600; 99283